=== PATIENT | male | born 1960 | race Caucasian/White ===

== ENCOUNTER 2018-09-11 19:49 | Inpatient (IN) | payer BC ==
[~2018-09-11 19:49] MED LIST: ISOVUE-370 76%-LOCM 1 ML ONE
[2018-09-11 20:15] LABS: Hemoglobin 12.6 g/dL (14.0-18.0); Mean Corpuscular HGB CONC 33.4 g/dL (32.0-36.0); Mean Corpuscular Hemoglobin 31.3 pg (27.0-31.0); Mean Corpuscular Volume 93.7 fL (78.0-98.0); Mean Platelet Volume 7.4 fL (7.4-10.4); Platelet Count 164 thou/uL (130-400); RBC Distribution Width 12.4 % (11.5-14.5); Red Blood Cell (RBC) Count 4.03 mill/uL (4.70-6.10); White Blood Cell (WBC) Count 26.4 thou/uL (4.8-10.8)
[2018-09-11 20:29] LABS: Band 21 % (5-11); Lymphocytes 1 % (21-51); MDiff Complete? YES; Monocytes 10 % (0-10); Neutrophil 68 % (42-75); Platelet Morphology Comment Appears Adequate
--- NOTE | 2018-09-11 20:29 | CT ---
CT BRAIN: 09/11/18 HISTORY: Fall. Head trauma. Patient fell into pool. Noncontrast enhanced CT images of the brain is obtained. Images demonstrate fractures involving the r ight and left occipital bones. The right sided occipital bone extends laterally and anteriorly into t he right temporal bone and through the right mastoid air cells extending into the posterior aspect of the right zygomatic arch. This is compatible with a transverse type right temporal bone fracture. So me fluid seen in the right mastoid air cells. Fluid is also seen in the left sphenoid sinus. Nondisplaced sphenoid sinus fracture cannot be exclude d. There is extensive bilateral frontal lobe brain parenchymal contusions with hemorrhage. Some subarac hnoid hemorrhage also seen. There is also subarachnoid air. IMPRESSION: Bilateral occipital bone fractures with fracture extending to the right temporal bone. There is hemor rhage seen in the left sphenoid sinus concerning for a sphenoid sinus fracture. There is also some ai r seen in the subarachnoid space anteriorly adjacent to bilateral frontal lobe brain contusions and h emorrhages. There also appears to be some subarachnoid blood involving the right and left frontal lob es. There also appears to be an area of hyperdensity in the posterior fossa adjacent to the left medi al anterior transverse sinus possibly representing subdural blood in this region. Findings discussed with Dr. Santos from the Emergency Room Department at 8:19 p.m. on 09/11/18. Code CR POS: [facility]
--- NOTE | 2018-09-11 20:37 | CT ---
CT FACIAL BONES: 09/11/18 HISTORY: Level II trauma. Axial images obtained with coronal and sagittal reconstructions. Images demonstrate oblique right transverse temporal bone fracture extending to the right zygomatic a rch posteriorly. There is a nondisplaced fracture through the right anterior and posterior as well as inferior wall of the right portion of the left opacified sphenoid sinus. This is compatible with a skull base fracture through the right portion of the left sphenoid sinus. The mandible is intact. IMPRESSION: Oblique right temporal bone fracture and left sphenoid sinus skull base fracture. POS: [facility]
--- NOTE | 2018-09-11 20:39 | CT ---
CT CERVICAL SPINE: 09/11/18 HISTORY: Fall. Head trauma. Axial images are obtained with coronal and sagittal reconstructions. CT images demonstrate disc space height loss with anterior and posterior osteophytes at C5-6. No maribell dence of acute cervical spine fracture is seen. IMPRESSION: C5-6 changes of spondylosis. No evidence of acute cervical spine fracture seen. POS: [facility]
--- NOTE | 2018-09-11 20:45 | CT ---
CONTRAST ENHANCED CT IMAGES OF THE CHEST, ABDOMEN AND PELVIS: 09/11/18 HX Level II trauma. Fell into swimming pool with head trauma. Coronal and sagittal reconstructed images also obtained of the thoracic and lumbar spine. CT chest, abdomen and pelvis demonstrate no evidence of acute intrathoracic abdominal or pelvic patho logy. Incidentally noted hepatic cyst seen. Gallstones are noted. No definite evidence of osseous les ions seen in the chest, abdomen and pelvis. No acute abnormalities noted. IMPRESSION: 1. Cholelithiasis. 2. Hepatic cyst. POS: [facility]
[2018-09-11 21:09] LABS: CKMB 8.4 ng/mL (0-6.6)
[2018-09-11] MEDS ORDERED: Morphine 4 MG/ML VIAL ONE (21:12)
[2018-09-11] MEDS ORDERED: Adacel (T-DAP) 0.5 ML SYRINGE ONE (21:13)
[2018-09-11] MEDS ORDERED: Ondansetron PF 4 MG/2 ML Vial ONE (21:13)
[2018-09-11 21:39] LABS: ALT (SGPT) 45 U/L (8-55); AST (SGOT) 56 U/L (5-34); Albumin 3.9 g/dL (3.5-5.0); Alkaline Phosphatase 61 U/L (40-150); Anion Gap 14 mmol/L (10-20); BUN (Urea Nitrogen) 19 mg/dL (8.4-25.7); Bilirubin, Total 0.8 mg/dL (0.2-1.2); CK (CPK) 340 U/L (30-200); Calc. Creatinine Clearance 0 mL/min (70-130); Calcium 8.7 mg/dL (7.8-10.44); Carbon Dioxide 25 mmol/L (22-29); Chloride 106 mmol/L (98-107); Estimated GFR-MDRD 81; Globulin 1.9 g/dL (2.4-3.5); Glucose 203 mg/dL (70-105); Lipase 18 U/L (8-78); Potassium 3.6 mmol/L (3.5-5.1); Protein, Total 5.8 g/dL (6.0-8.3); Sodium 141 mmol/L (136-145)
[2018-09-11 22:08] LABS: INR-International Normal Ratio 1.3; PTT 27.9 SEC (22.9-36.1); Prothrombin Time 16.7 SEC (12.0-14.7)
--- NOTE | 2018-09-11 22:11 | HP ---
REQUESTING PHYSICIAN: Dr. Santos. ATTENDING SURGEON: Dr. Plaza. CONSULTATIONS: Neurosurgery, Dr. Aranda. HISTORY OF PRESENT ILLNESS: The patient is a 57-year-old man who was brought to the emergency department by ground EMS after he reportedly had a history of falling into an empty pool that he was pressure washing. The patient had a positive loss of consciousness for an unknown amount of time. He was finally able to get to help, brought to the emergency department and found to have multiple skull fractures and intracranial hemorrhages and frontal contusions, at which time we were asked to admit the patient and obtain Neurosurgical consultation. ALLERGIES: NONE. CURRENT MEDICATIONS: None. PAST MEDICAL HISTORY: None. PAST SURGICAL HISTORY: Bilateral knee surgery and back surgery of his L-S spine. SOCIAL HISTORY: The patient drinks beer occasionally. Denies drug or tobacco use. 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 REVIEW OF SYSTEMS: Ten-point review of systems is negative as otherwise stated. PHYSICAL EXAMINATION: VITAL SIGNS: Blood pressure 122/81, heart rate 90, respirations 16, oxygen saturation 94% on room air, and temperature is 97.9. GENERAL: The patient is resting comfortably in bed. He is alert and oriented x3. He is amnestic to the events. His [place] Coma Scale is 14, -1 for eye opening, but the patient does open his eyes to verbal stimuli. HEENT: The patient is covered in dried blood from what appears to be two small scalp lacerations that the emergency room physician is going to clean out and close with jerome. Eyes, extraocular motion intact. PERRLA bilaterally. Ears are atraumatic without discharge. Nose has dried blood in both nares. There is no septal hematoma. Oropharynx is clear. NECK: Immobilized in a cervical collar. The patient has tenderness to palpation in the high C-spine consistent with his occipital fractures and has slight paraspinous tenderness to palpation. Trachea is midline. No JVD. The patient's pre-hospital collar will be exchanged for an [place] collar. LUNGS: Clear to auscultation with good inspiratory and expiratory effort. HEART: Regular rate and rhythm. ABDOMEN: Soft, flat, nontender with active bowel sounds. PELVIS: Stable. EXTREMITIES: Neurovascularly intact x4. Strength is 5/5. The patient has multiple upper extremity abrasions and is covered in blood that appears to have still been from his scalp injuries. There are no open wounds, minus the abrasions noted. BACK: Atraumatic with tenderness to palpation in his lower spine area. LABORATORY FINDINGS: White blood cell count 26.4, hemoglobin 12.6, hematocrit 37.7, and platelets 164. Chemistries are pending. RADIOGRAPHIC FINDINGS: CT of the brain without contrast shows bilateral occipital bone fractures extending to the right temporal bone. There is hemorrhage seen in the left sphenoid sinus concerning for a sphenoid sinus fracture. There is also some air seen in the subarachnoid space anteriorly adjacent to the bifrontal lobe brain contusions and hemorrhages. There also appears to be some subarachnoid blood involving the right and left frontal lobes. There also appears to be an area of hyperdensity in the posterior fossa adjacent to the left medial anterior transverse sinus, possibly representing subdural blood in this region. CT of the facial bones without contrast shows an oblique right temporal bone fracture and left sphenoid sinus base skull fracture. CT of the C-spine without contrast shows no evidence of acute cervical spine fracture. CT of the chest, abdomen, and pelvis with IV contrast shows no evidence of acute intrathoracic, abdominal, or pelvic pathology. ASSESSMENT: 1. Status post fall from approximately 4 to 5 feet. 2. Multiple small intracranial hemorrhages. 3. Multiple skull fractures. 4. Scalp laceration. PLAN: Plan will be to admit the patient to the critical care unit for serial exams. He will have a repeat head CT in the morning sooner as determined if he has a decline of 2 points on his [place] Coma Scale. Nonnarcotic pain medication, IV fluid hydration, pulmonary toilet, gastritis and mechanical VTE prophylaxis. The evaluation, examination, laboratory, and radiographic findings will be discussed with Dr. Plaza after this dictation. The patient was examined by Dr. Manoj Montalvo's nurse surgical PA in the emergency department also. Job ID: [id number]
--- NOTE | 2018-09-11 23:08 | CON ---
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 It is unknown how long he was down, but it seems that it was at least 3-4 hours according to , who found him after he had gotten himself out of the pool and was laying on the ground. Neurosurgery was consulted for CT scan revealing multi-site of skull and facial fractures including bilateral occipital bone fractures, right-sided religion bone fracture, bilateral sphenoid fractures. The right religion fracture extends into the zygoma. There is also question of possible orbital fractures. He also has posterior fossa intracerebral hemorrhage that likely appears to be midline subdural with minimal mass effect. He also has a large left frontal contusion and a small right frontal subdural hematoma anteriorly. He has a cervical spine CT that reveals only mild degenerative change, but no acute injuries that I can tell. Radiology confirms this. 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 Upon my entry in the room, the patient is lying in bed, in obvious discomfort. He has his eyes closed, but responds appropriately. He does perseverate some frequently asking the same questions. He does not have any recollection and is amnestic to the event before and after his fall. He does know where he is. He does know the month. He does know his name, date of . He is able to move all 4 extremities on command. Pupils are equal, round, reactive to light. Extraocular movements are intact. He complains of headache and severe lower back pain, but otherwise he appears rather well considering the substantial injuries sustained to his calvarium. I would grade his GCS 14 secondary to slight confusion and perseveration. PAST MEDICAL HISTORY: He has no major medical problems. He does take occasional Motrin. He did take some this morning. PLAN: From NSG perspective, this represents nonoperative intracerebral hemorrhage and multiple skull fractures. We will need a repeat CT scan around 4:30 am in the morning to evaluate evolution and change of his hematomas. I will need to hold all blood thinning medications, head of bed at 30 degrees. Neuro checks q.1 hour for now until recheck on scan. He is in a trauma cervical collar at the moment. We can switch him to an Concepcion for comfort reasons, unable to definitively clear his C spine given distracting injury, though radiographically negative on CT. Job ID: [id number] MTDD
[2018-09-11 23:53] LABS: Troponin I 0.037 ng/mL (< 0.028)
[2018-09-11 23:58] VITALS: BMI 27.7
[2018-09-12] MEDS ORDERED: Ondansetron PF 4 MG/2 ML Vial IVP PRN (00:49)
[2018-09-12] MEDS ORDERED: Ondansetron ODT 4 MG TAB PO PRN (00:49)
[2018-09-12] MEDS ORDERED: Cyclobenzaprine 10 MG TAB PO PRN (00:49)
[2018-09-12] MEDS ORDERED: hydrALAZINE 20 MG/ML VIAL SLOW IVP PRN (00:49)
[2018-09-12] MEDS ORDERED: Dextrose 50% Abboject 50 ML SYRINGE SLOW IVP PRN (00:49)
[2018-09-12] MEDS ORDERED: Promethazine HCl 25 MG/ML VIAL IM PRN ×2 (00:49)
[2018-09-12] MEDS ORDERED: traMADol HCl 50 MG TAB PO PRN (00:49)
[2018-09-12] MEDS ORDERED: Dextrose 5% in Water 1,000 ML IV PRN (00:49)
[2018-09-12] MEDS: Scopolamine 1.5 mg/72 hour Patch TD SCH (01:56)
[2018-09-12] MEDS: Acetaminophen 500 MG TAB PO SCH ×4 (01:56→21:00)
[2018-09-12] MEDS: Sodium Chloride 0.9% 1,000 ML IV SCH ×3 (01:56→18:30)
[2018-09-12 02:34] LABS: #Lymphocytes 0.4 thou/uL (1.20-3.40); #Monocytes 0.9 thou/uL (0.11-0.59); %Eosinophils 0.2 % (0.0-10.0); %Lymphocytes 2.5 % (21.0-51.0); %Monocytes 6.3 % (0.0-10.0); Hemoglobin 11.5 g/dL (14.0-18.0); Mean Corpuscular HGB CONC 35.1 g/dL (32.0-36.0); Mean Corpuscular Hemoglobin 32.7 pg (27.0-31.0); Mean Corpuscular Volume 93.2 fL (78.0-98.0); Mean Platelet Volume 8.1 fL (7.4-10.4); Platelet Count 123 thou/uL (130-400); RBC Distribution Width 12.4 % (11.5-14.5); Red Blood Cell (RBC) Count 3.52 mill/uL (4.70-6.10); White Blood Cell (WBC) Count 14.3 thou/uL (4.8-10.8)
[2018-09-12 02:53] LABS: Anion Gap 16 mmol/L (10-20); BUN (Urea Nitrogen) 16 mg/dL (8.4-25.7); Calc. Creatinine Clearance 145 mL/min (70-130); Calcium 8.7 mg/dL (7.8-10.44); Carbon Dioxide 19 mmol/L (22-29); Chloride 109 mmol/L (98-107); Estimated GFR-MDRD Greater than 90; Glucose 200 mg/dL (70-105); Potassium 3.8 mmol/L (3.5-5.1); Sodium 140 mmol/L (136-145)
[2018-09-12 02:54] LABS: Troponin I 0.037 ng/mL (< 0.028)
[2018-09-12] MEDS: traMADol HCl 50 MG TAB PO PRN ×3 (03:06→14:51)
--- NOTE | 2018-09-12 07:40 | CT ---
CT HEAD NONCONTRAST: INDICATIONS: Intracranial hemorrhage. COMPARISON: 09/11/2018 FINDINGS: There is persistence of multifocal intracranial hemorrhage, including bilateral frontal lobe contusio ns, left greater than right, posteromedial left cerebellar hematoma, and hematoma overlying the anter ior temporal poles bilaterally, as well as a right anterior temporal lobe contusion. [id number] shrestha-left posterior subdural hematomas overly the cerebellum. There is also extraaxial hemorrhage ove rlying the cerebral convexities, right greater than left, indicating a component of subdural and suba rachnoid hemorrhage. Multifocal pneumocephalus is again seen. Calvarial fractures are redemonstrate d. The ventricular system is stable. IMPRESSION: Multifocal intraparenchymal and extraaxial hemorrhage persist, bilaterally with associated posttrauma tic pneumocephalus. No new midline shift or ventriculomegaly. POS: [facility]
[2018-09-12] MEDS: Famotidine 20 MG TAB PO SCH ×2 (09:05→20:59)
--- NOTE | 2018-09-12 11:32 | PRG ---
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 He is also somewhat lethargic, which is likely a combination of significant concussion and closed, and lack of sleep secondary to both pain and arousals from neuro checks overnight. He at this point is at least a week and half that we can clear his cervical spine, which I have done. He has no significant tenderness in the midline. He does have some muscular tenderness, but I do not believe that this is unexpected given the type of fall he sustained. We will discontinue his [place] collar unless he needs it for comfort. We will keep him informed for this purpose. Neuro checks can be relaxed either T4 or T6 depending on primary team's preference. Repeat CT scan this morning shows stable hemorrhage in all locations without significant midline shift or mass effect. All this could very well resolve on its own. I do not see any need to repeat CT scanning at this point unless there is decline in neurologic status. He can be transferred from the ICU at any time to either the surgical floor or stroke unit depending on primary team's preference. Neurosurgery will continue to follow, though no intervention is planned. Job ID: [id number]
[2018-09-13] MEDS: Acetaminophen 500 MG TAB PO SCH ×4 (02:39→20:57)
[2018-09-13] MEDS: Sodium Chloride 0.9% 1,000 ML IV SCH (06:59)
--- NOTE | 2018-09-13 07:44 | PRG ---
DATE OF SERVICE: 09/13/2018 Mr. Bourgeois this morning is a little more interactive, still somewhat lethargic, but does awakens and answer me little more than he had yesterday morning. and daughter are still concerned about persistent bleeding from the right external auditory meatus. A cotton ball was placed and he actually has no clotted blood within the meatus and no active drainage that I could see. I am not concerned about this is the moment, if this is persistent for another 24-48 hours or we may need to do a more focused CT scan and involve ENT. We will discuss with Dr. Aranda today to confirm that plan. In terms of his overall progression, we will slowly start to incorporate physical therapy and establish a baseline tolerance of activity and try to progress him from there. I would like to see him out of the bed sooner than later, but do not want to . A Avalos catheter apparently was placed for urinary retention. I do not have an explanation for that. We will defer to primary team for workup. Neurosurgery will continue to follow. Job ID: [id number]
[2018-09-13] MEDS: Famotidine 20 MG TAB PO SCH ×2 (08:39→20:57)
--- NOTE | 2018-09-13 10:52 | PRG ---
DATE OF SERVICE: 09/13/2018 Mr. Bourgeois is recovering on the floor status post fall with a large predominantly left greater than right frontal contusion. He also has traumatic subarachnoid hemorrhage present. He is resting comfortably in his bed today and is alert, oriented, interactive. He does report some headache, but it has vastly improved as compared to the preceding couple of days. He is to mobilize yet in the room, more in the hallway. The plan will be to mobilize him with physical therapy. I do not foresee a need for neurosurgical intervention. From our perspective, he can be discharged home once he is safe to do so. We will arrange outpatient followup in approximately 2 weeks. I did review with him and family present symptoms of postconcussive syndrome. We will review those yet again and further evaluate for postconcussive symptoms at his outpatient visit. Job ID: [id number]
[2018-09-13] MEDS: Clindamycin 150 MG CAP PO SCH ×2 (15:18→20:58)
[2018-09-13] MEDS: Senokot S 8.6-50 MG TAB PO SCH (20:57)
--- NOTE | 2018-09-13 22:43 | PRG ---
DATE OF SERVICE: 09/13/2018 SUBJECTIVE: This is a 57-year-old gentleman, who was brought to the emergency room, status post falling into an empty pool that he was pressure washing. The patient is hospital day #2. The patient was found to have multiple skull fractures and intracranial hemorrhages with frontal contusions. The patient did have some urinary retention yesterday, and a Avalos was placed. The patient reports headache, but not as bad as yesterday. The patient awakens to voice and is alert and oriented. The patient with minimal appetite but denies any nausea or vomiting. The patient falls back asleep after being interactive. The patient does have some bloody drainage from the right ear averaging about 2 mL every 2 hours. The patient was seen by Neurosurgery today and does not anticipate any surgical intervention. OBJECTIVE: VITAL SIGNS: Temperature 98.2, pulse 64, respirations 20, SpO2 of 95% on room air, and blood pressure 126/74. GENERAL: The patient is sleeping in hospital bed with light off. The patient arouses and opens his eyes to voice. In no distress. HEENT: Mild bloody drainage from the right ear. LUNGS: Clear to auscultation. Good inspiratory and expiratory effort. NECK: Immobilized in soft cervical collar. Trachea is midline. HEART: Regular rate and rhythm. ABDOMEN: Soft, flat, nontender, nondistended. EXTREMITIES: Neurovascularly intact x4. Strength is 5/5. Multiple abrasions to upper extremities. LABORATORY DATA: There are no labs to evaluate today. DIAGNOSTIC DATA: There are no diagnostics to review. IMPRESSION: 1. Status post fall from approximately 4 to 5 feet. 2. Multiple small intracranial hemorrhages. 3. Multiple skull fractures. 4. Scalp laceration closed with jerome. 5. Postconcussive syndrome. PLAN: We will place a rehab screen. We will continue to have Physical Therapy work with the patient. We will also have Speech work with the patient for cognition. We will continue pain regimen. The patient is encouraged to increase activity, but also get enough rest during the day. We will discontinue the patient's Avalos and watch for any continued urinary retention. The patient was seen and evaluated this morning with Dr. Plaza. Job ID: [id number] MTDD
[2018-09-14] MEDS: Clindamycin 150 MG CAP PO SCH ×3 (05:42→20:52)
[2018-09-14] MEDS: Acetaminophen 500 MG TAB PO SCH ×4 (05:42→20:52)
[2018-09-14] MEDS: Polyethylene Glycol 3350 17 GM Packet PO SCH (09:29)
[2018-09-14] MEDS: Senokot S 8.6-50 MG TAB PO SCH ×2 (09:29→20:52)
[2018-09-14] MEDS: Famotidine 20 MG TAB PO SCH ×2 (09:30→20:53)
[2018-09-14] MEDS ORDERED: Tamsulosin HCl 0.4 MG CAP PO SCH (10:15)
[2018-09-14] MEDS ORDERED: Bisacodyl 10 MG SUPP PR PRN (13:25)
--- NOTE | 2018-09-14 14:23 | PRG ---
DATE OF SERVICE: 09/14/2018 SUBJECTIVE: This 57-year-old gentleman is hospital day 3, status post fall into an empty pool in which he sustained multiple skull fractures and intracranial hemorrhage with frontal contusions. The patient reports pain well controlled today, seen in the room, standing from a seated position and transferring in bed successfully with physical therapy. Reports appetite as being improved, urination still minimal at this time. OBJECTIVE: VITAL SIGNS: Blood pressure 112/64, pulse is 70, respirations 16, oxygen saturation 92% on room air. Afebrile. GENERAL: The patient's abrasions and cuts on head are not erythematous, edematous, and do not appear to be actively bleeding. Cranial nerves grossly intact with no focal deficit noted. CHEST: Even inspiratory and expiratory effort. No respiratory distress. ABDOMEN: Flat, nondistended. EXTREMITIES: Neurovascularly intact x4. Seen ambulating successfully. Abrasions do not appear to be infected. LAB/IMAGING: Nothing additional to be reviewed today. ASSESSMENT: 1. Status post fall with subsequent traumatic injuries. 2. Small, stable intracranial hemorrhage. 3. Multiple skull fractures. 4. Scalp lacerations. 5. Postconcussive syndrome. PLAN: Continue to evaluate for inpatient rehab placement and continue supportive care with physical therapy and occupational therapy and Flomax today for urinary retention and Dulcolax suppository for constipation. The patient has not had a bowel movement since being admitted. Continue to control pain and monitor for urine output. We will wait to discontinue Avalos until tomorrow. This patient was seen on morning rounds today and will be discussed with Dr. Kamara upon finishing this dictation. Job ID: [id number]
[2018-09-15] MEDS: Acetaminophen 500 MG TAB PO SCH ×4 (02:52→20:20)
[2018-09-15] MEDS: Scopolamine 1.5 mg/72 hour Patch TD SCH (02:52)
[2018-09-15] MEDS: Clindamycin 150 MG CAP PO SCH ×3 (07:02→20:21)
[2018-09-15] MEDS: Senokot S 8.6-50 MG TAB PO SCH ×2 (09:38→20:20)
[2018-09-15] MEDS: Polyethylene Glycol 3350 17 GM Packet PO SCH (09:38)
[2018-09-15] MEDS: Famotidine 20 MG TAB PO SCH ×2 (09:39→20:21)
[2018-09-15] MEDS: Tamsulosin HCl 0.4 MG CAP PO SCH (09:39)
--- NOTE | 2018-09-15 11:52 | PRG ---
DATE OF SERVICE: 09/15/2018 SUBJECTIVE: Mr. Bourgeois is hospital day #4, status post fall into an empty pool. He sustained multiple skull fractures and intracranial hemorrhage with frontal contusions. The patient is very brief when questioned today, does not desire shades to be opened, reports no headache. Family reports the patient had an eventful night last night including aggressive type behavior, nonphysical in nature, but calling out for things that are not there or reporting that it is daytime outside when it is not, overall really disoriented, and unaware of what was going on. Family reports this is not normal for patient. Increased anger is abnormal as well. They desire to go to inpatient rehab in the [place]. OBJECTIVE: VITAL SIGNS: Stable. Blood pressure mildly elevated at 143/73, pulse 77, respirations 20, oxygen saturation 97%. Afebrile. Port-A-Cath discontinued. Good output measured urinal. GENERAL: Lacerations and abrasions on the patient's head are nonerythematous, nonedematous, and hemostatic. CHEST: Even inspiratory and expiratory effort. No respiratory distress. ABDOMEN: Flat, nondistended. EXTREMITIES: Neurovascularly intact. NEUROLOGIC: Cranial nerves grossly intact. No focal deficit noted. The patient seems irritable. LAB/IMAGING: No studies to be reviewed today. ASSESSMENT: 1. Status post fall, subsequent traumatic injuries. 2. Small stable intracranial hemorrhage. 3. Multiple skull fractures. 4. Scalp lacerations. 5. Postconcussive syndrome with frontal type injury. PLAN: The patient is stable for discharge to inpatient rehab when available. New choice letter sent awaiting insurance approval. The patient is ambulating, urinating, and eating successfully. Mental status changes associated with frontal nature of head injury. Continue to encourage reorientation and to proceed with supportive care. Continue physical therapy and occupational therapy. This patient was seen and evaluated with Dr. Klaus Plaza in the morning rounds. Job ID: [id number] [facility]
[2018-09-15] MEDS: traMADol HCl 50 MG TAB PO PRN (22:02)
[2018-09-16] MEDS: Acetaminophen 500 MG TAB PO SCH ×4 (03:53→21:06)
[2018-09-16] MEDS: Clindamycin 150 MG CAP PO SCH ×3 (06:09→21:11)
[2018-09-16] MEDS: Senokot S 8.6-50 MG TAB PO SCH ×2 (10:56→21:07)
[2018-09-16] MEDS: Famotidine 20 MG TAB PO SCH ×2 (10:56→21:07)
[2018-09-16] MEDS: Tamsulosin HCl 0.4 MG CAP PO SCH (10:56)
[2018-09-16] MEDS: Polyethylene Glycol 3350 17 GM Packet PO SCH (10:58)
[2018-09-16] MEDS: traMADol HCl 50 MG TAB PO PRN (12:38)
[2018-09-16] MEDS: Gabapentin 100 MG CAP PO SCH ×2 (14:29→21:06)
--- NOTE | 2018-09-16 14:44 | PRG ---
DATE OF SERVICE: 09/16/2018 SUBJECTIVE: Mr. Bourgeois is post injury day #5, status post from which he fell into an empty pool, had multiple skull and basilar fractures, intracranial hemorrhage with frontal contusions. Family reports that the patient has had improved mentation and aggression today, is agreeable to go to TBI rehab, is tolerating p.o. well, and ambulating well with some unsteadiness with physical therapy. OBJECTIVE: VITAL SIGNS: Blood pressure 128/79, pulse 63, respirations are 18, temperature 98.6, and saturating well on room air. GENERAL: The patient is in no acute distress. Exhibits signs of photophobia. HEENT: Multiple lacerations and contusions visualized, unchanged from previous days. Clot present within the ear evacuated. No foreign body present. CHEST: Flat. No bony abnormality noted. Even inspiratory and expiratory effort. ABDOMEN: Flat, nontender to palpation. EXTREMITIES: Moves all four. NEUROLOGIC: Cranial nerves are grossly intact. The patient is neurovascularly intact x4. No focal deficit noted. LABORATORY/IMAGING DATA: Nothing new to be reviewed today. ASSESSMENT: 1. Status post fall, subsequent traumatic injuries. 2. Small stable intracranial hemorrhage. 3. Multiple skull fractures. 4. Scalp lacerations. 5. Postconcussive syndrome with frontal type injury. PLAN: The patient is stable for discharge to inpatient rehab when available and continue to encourage ambulation with physical therapy and strengthening including balance exercises. Continue to provide for family support for understanding traumatic brain injuries including reorientation of the patient frequently. This patient was seen and evaluated on morning rounds with Dr. Klaus Plaza. Job ID: [id number]
[2018-09-17] MEDS: Acetaminophen 500 MG TAB PO SCH ×4 (03:01→21:04)
[2018-09-17] MEDS: traMADol HCl 50 MG TAB PO PRN (04:28)
[2018-09-17 04:50] LABS: #Eosinphils 0.3 thou/uL (0.0-0.7); #Lymphocytes 0.7 thou/uL (1.20-3.40); #Monocytes 1.1 thou/uL (0.11-0.59); #Neutrophils 7.4 thou/uL (1.40-6.50); %Basophils 0.1 % (0.0-1.0); %Eosinophils 2.8 % (0.0-10.0); %Lymphocytes 7.3 % (21.0-51.0); %Monocytes 11.4 % (0.0-10.0); %Neutrophils 78.5 % (42.0-75.0); Hemoglobin 9.4 g/dL (14.0-18.0); Mean Corpuscular HGB CONC 34.1 g/dL (32.0-36.0); Mean Corpuscular Hemoglobin 31.7 pg (27.0-31.0); Mean Corpuscular Volume 92.9 fL (78.0-98.0); Mean Platelet Volume 8.6 fL (7.4-10.4); Platelet Count 67 thou/uL (130-400); Red Blood Cell (RBC) Count 2.95 mill/uL (4.70-6.10); White Blood Cell (WBC) Count 9.5 thou/uL (4.8-10.8)
[2018-09-17 04:57] LABS: Anion Gap 10 mmol/L (10-20); BUN (Urea Nitrogen) 16 mg/dL (8.4-25.7); Calc. Creatinine Clearance 160 mL/min (70-130); Calcium 8.6 mg/dL (7.8-10.44); Carbon Dioxide 28 mmol/L (22-29); Chloride 101 mmol/L (98-107); Estimated GFR-MDRD Greater than 90; Glucose 121 mg/dL (70-105); Magnesium 1.7 mg/dL (1.6-2.6); Phosphorus 3.5 mg/dL (2.3-4.7); Potassium 3.4 mmol/L (3.5-5.1); Sodium 136 mmol/L (136-145)
[2018-09-17] MEDS: Clindamycin 150 MG CAP PO SCH ×3 (05:47→21:04)
[2018-09-17] MEDS ORDERED: Potassium Chloride 20 MEQ TAB PO SCH (07:30)
[2018-09-17] MEDS: Tamsulosin HCl 0.4 MG CAP PO SCH (08:00)
[2018-09-17] MEDS: Senokot S 8.6-50 MG TAB PO SCH ×2 (08:00→21:04)
[2018-09-17] MEDS: Famotidine 20 MG TAB PO SCH (08:00)
[2018-09-17] MEDS: Gabapentin 100 MG CAP PO SCH ×3 (08:00→21:03)
[2018-09-17] MEDS: Polyethylene Glycol 3350 17 GM Packet PO SCH (08:18)
--- NOTE | 2018-09-17 12:34 | CON ---
DATE OF CONSULTATION: 09/16/2018 BRIEF HISTORY: This is a gentleman who has complete loss of consciousness, is unaware of complete events. Basically, he had significant head trauma while he was cleaning out the inside of a pool, thought he had fallen from a height into the pool and landed on his head. He had multiple skull fractures diagnosed and followed by CT scan. They were aware of a temporal bone fracture on his right side; however, the external auditory canal had appeared abnormal and they consulted us for evaluation. Brief history chart reports no significant hearing loss other than some mild age-related changes prior to this. Now, he reports complete fullness and autophony in that right ear. He reports mild ringing in that ear. He denies any weakness in his face. The family is at the bedside and they feel that his face has been symmetrical and intact throughout this ordeal. He has not had significant amounts of otorrhea, although the otorrhea that he has had, they did a Beta-2 transferrin, which was negative. PAST MEDICAL HISTORY: Mild high blood pressure. PAST SURGICAL HISTORY: Nonsignificant. PHYSICAL EXAMINATION: HEENT: Left ear, TMs intact. Middle ear is well aerated. Right ear, there is an external auditory canal laceration that has swollen skin and some granulation present. This is obliterating the majority of the canal. There is no obvious CSF leak. There is some mild tenderness around the temporal bone; however, I feel no step-offs or crepitus on the mastoid tip or in the periauricular area. Facial nerve is intact bilaterally. Nasal cavity is slightly congested. Oral cavity, oropharynx, mucosa is intact. NECK: No lymphadenopathy. No masses. ASSESSMENT AND PLAN: Right transverse-type temporal bone fracture. His facial nerve is currently intact. It appears the fracture line has spared the otic capsule; however, we will need audiogram on outpatient to confirm this. For the time being, I recommend we leave the external auditory canal laceration and allow to heal on its own. We need to keep a follow up on this as an outpatient. Recommend he follow up with us in 1 to 2 weeks depending his discharge plans. Job ID: [id number] MTDD
[2018-09-18] MEDS: Acetaminophen 500 MG TAB PO SCH ×4 (02:21→20:31)
[2018-09-18] MEDS: traMADol HCl 50 MG TAB PO PRN ×2 (02:22→20:32)
[2018-09-18] MEDS: Scopolamine 1.5 mg/72 hour Patch TD SCH (02:22)
[2018-09-18] MEDS: Clindamycin 150 MG CAP PO SCH ×3 (06:06→22:06)
--- NOTE | 2018-09-18 07:51 | PRG ---
DATE OF SERVICE: 09/17/2018 SUBJECTIVE: Mr. Bourgeois is post-injury day #6, status post fall into an empty pool with multiple skull, basilar fractures, intracranial hemorrhage, and frontal contusions. The family reports that the patient had a good night last night with improved mentation and decreased aggression today. They have selected an inpatient rehab and are awaiting insurance authorization. The patient is tolerating p.o. well, doing well with occupational and physical therapy. Ambulating successfully with some unsteadiness. OBJECTIVE: VITAL SIGNS: Stable. Saturating well on room air. Afebrile. GENERAL: This patient is in no acute distress. HEENT: Multiple lacerations and contusions were visualized and unchanged from previous days. CHEST: Flat. No bony abnormality noted. Even inspiratory and expiratory effort. ABDOMEN: Flat, nontender to palpation. EXTREMITIES: Moves all four. NEUROLOGIC: Cranial nerves grossly intact. The patient is neurovascularly intact x4. No focal deficits noted. LABORATORY/IMAGING DATA: Nothing new to be reviewed today. ASSESSMENT: 1. Status post fall, subsequent traumatic injuries. 2. Small stable intracranial hemorrhage. 3. Multiple skull fractures. 4. Scalp lacerations. 5. Postconcussive syndrome with left frontal type injury. PLAN: The patient remained stable for discharge to inpatient rehab when available. Follow up with Case Management this afternoon. Reported that insurance approval was still pending. Continue supportive therapy with PT and OT. Job ID: [id number]
[2018-09-18] MEDS: Polyethylene Glycol 3350 17 GM Packet PO SCH (08:14)
[2018-09-18] MEDS: Gabapentin 100 MG CAP PO SCH ×3 (08:14→20:30)
[2018-09-18] MEDS: Senokot S 8.6-50 MG TAB PO SCH ×2 (08:14→20:31)
[2018-09-18] MEDS: Tamsulosin HCl 0.4 MG CAP PO SCH (08:14)
--- NOTE | 2018-09-18 17:47 | RAD ---
TWO VIEWS LEFT HIP: 09/18/18 HISTORY: Continued left hip pain for one week after a fall. FINDINGS: There is no evidence of a fracture, dislocation, or other osseous abnormality involving the left hip . No other osseous abnormality. IMPRESSION: No fracture or dislocation involving the left hip. POS: C
--- NOTE | 2018-09-18 22:45 | PRG ---
DATE OF SERVICE: 09/18/2018 SUBJECTIVE: The patient remains on the surgical floor. He is hospital day #7, status post fall into an empty pool, which he sustained multiple skull fractures, intracranial hemorrhage, and frontal contusions. The patient has been awaiting placement. Late this afternoon, we received word that he had been denied due to "insufficient clinical data." This was relayed to Case Management and they subsequently notified here, but as of this dictation time, we still have not heard back in regard to attempting to get a peer to appear or hopefully approval from them. Otherwise, the patient is progressing. He has been able to work with Physical therapy more today. He complained of some left hip pain, that was slowing him down. Re-x-rays still are unremarkable for any fractures. It is likely a soft tissue injury. The patient is tolerating a diet. Pain is controlled. He has improved mentation. OBJECTIVE: VITAL SIGNS: Temperature is 98.6, heart rate 82, blood pressure 139/83, respirations 16, oxygen saturation 94% on room air. GENERAL: The patient is resting comfortably in bed. He is awake, appropriate, alert, and oriented x3. [place] Coma Scale is 15. HEENT: Unchanged. All wounds appear clean, dry, and intact. CHEST: The patient has even inspiratory and expiratory effort. No distress. Appears to be moving air freely. ABDOMEN: Flat. EXTREMITIES: Neurovascularly intact x4. The patient is moving all 4 extremities effortlessly. LABORATORY DATA: There are no labs to review this morning. RADIOGRAPHS: Views of the left hip showed no fracture or dislocation. ASSESSMENT: 1. Status post fall with multiple traumatic injuries. 2. Intracranial hemorrhages, stable. 3. Multiple skull fractures, stable. PLAN: Plan will be to continue supportive care, physical and occupational therapy, and speech therapy for cognition. Of note, the patient was evaluated by ENT, Dr. Bolden yesterday for some blood noted in his canal. Scans did show a fracture through this area, but spared the otic capsule and the patient will require a followup with Dr. Bolden in 1 to 2 weeks depending on his discharge time. Job ID: [id number]
[2018-09-19] MEDS: Acetaminophen 500 MG TAB PO SCH ×4 (03:12→22:21)
[2018-09-19] MEDS: Clindamycin 150 MG CAP PO SCH ×3 (06:00→21:53)
[2018-09-19] MEDS: Gabapentin 100 MG CAP PO SCH ×3 (07:59→21:55)
[2018-09-19] MEDS: Polyethylene Glycol 3350 17 GM Packet PO SCH (08:00)
[2018-09-19] MEDS: Senokot S 8.6-50 MG TAB PO SCH ×2 (08:00→21:53)
[2018-09-19] MEDS: Tamsulosin HCl 0.4 MG CAP PO SCH (08:00)
[2018-09-19] MEDS: HYDROcodone/Acetaminophen 5/325 mg Tablet PO PRN ×2 (12:46→21:54)
[2018-09-19] MEDS ORDERED: Scopolamine 1.5 mg/72 hour Patch TD SCH (13:00)
--- NOTE | 2018-09-19 19:09 | PRG ---
DATE OF SERVICE: 09/19/2018 SUBJECTIVE: The patient remains on the surgical floor. He is hospital day #8, status post fall into an empty pool, in which he sustained multiple skull fractures and traumatic brain injuries. The patient has been waiting for placement. Unfortunately, he was declined initially and we are working to rectify this in hopes of getting a [id number] for approval. Otherwise, the patient remains working with physical and occupational therapy and speech therapy. Chief complaint today is just headache, but he is tolerating a diet and he has been out of bed ambulating. The patient's bowel function has returned. OBJECTIVE: VITAL SIGNS: Temperature is 98.1, heart rate is 74, blood pressure 154/79, respirations 18, and oxygen saturation is 96% on room air. GENERAL: The patient is resting comfortably in bed. He does appear in better spirits than yesterday. This was discussed with the patient and his family that getting out of his room ambulating will approve his spirits, but he will have his good days and bad days. HEENT: Unchanged. RESPIRATIONS: Appear nonlabored. ABDOMEN: Flat. EXTREMITIES: The patient is moving all 4 extremities freely purposefully. LABORATORY DATA: There are no labs or radiographs reviewed this morning. ASSESSMENT: 1. Status post fall with multiple traumatic injuries. 2. Intracranial hemorrhages, stable. 3. Multiple skull fractures, stable. PLAN: Plan will be to continue all supportive therapies and await final placement decisions. Job ID: [id number]
[2018-09-20] MEDS: Acetaminophen 500 MG TAB PO SCH ×4 (03:43→20:33)
[2018-09-20] MEDS: Clindamycin 150 MG CAP PO SCH ×3 (06:16→20:34)
[2018-09-20] MEDS: HYDROcodone/Acetaminophen 5/325 mg Tablet PO PRN ×2 (06:16→12:58)
[2018-09-20] MEDS: Senokot S 8.6-50 MG TAB PO SCH ×2 (09:40→20:34)
[2018-09-20] MEDS: Polyethylene Glycol 3350 17 GM Packet PO SCH (09:40)
[2018-09-20] MEDS: Tamsulosin HCl 0.4 MG CAP PO SCH (09:41)
[2018-09-20] MEDS: Gabapentin 100 MG CAP PO SCH ×3 (09:41→20:33)
--- NOTE | 2018-09-20 14:47 | PRG ---
DATE OF SERVICE: 09/20/2018 SUBJECTIVE: The patient remains on the surgical floor. He is status post a fall into an empty pool, which he sustained multiple skull fractures and traumatic brain injury. The patient has been awaiting placement to [facility], but there are some administrative issues with paperwork, so we are awaiting hopeful determination tomorrow. Otherwise, yesterday, the patient had a significant headache, that has since resolved, but did prevent him from being able to work with Physical and Occupational Therapy. Overnight, he had no issues. He feels much better this morning and feels that he will be able to work with therapy. The patient is tolerating a diet and his bowel function has returned. PHYSICAL EXAMINATION: VITAL SIGNS: Temperature is 98.1, heart rate 73, blood pressure 119/69, respirations 12, and oxygen saturation 94% on room air. GENERAL: The patient is resting comfortably in bed. He is awake, alert, and oriented. [place] Coma Scale is 15. HEENT: The patient has some dried blood in his right external auditory canal. He has not required a cotton ball in this canal for just over 24 hours now. LUNGS: Clear to auscultation with good inspiratory and expiratory effort. HEART: Regular rate and rhythm. ABDOMEN: Soft, flat, and nontender with active bowel sounds. EXTREMITIES: Neurovascularly intact x4. LABORATORY DATA: There are no labs or radiographs to review this morning. ASSESSMENT AND PLAN: 1. Status post fall with multiple traumatic skull and brain injuries, stable. 2. Headache secondary to above, resolved. Plan will be to continue supportive care and await final placement determination. I did have a discussion with the patient and his spouse today that if we are unable to get him placed to [facility], tomorrow we would also discuss other options to include home with home health. Again, this will be discussed tomorrow when the entire trauma team and case management are with us. Job ID: [id number]
[2018-09-20] MEDS ORDERED: Scopolamine 1.5 mg/72 hour Patch TD SCH (18:00)
[2018-09-21] MEDS: HYDROcodone/Acetaminophen 5/325 mg Tablet PO PRN ×3 (01:57→19:27)
[2018-09-21] MEDS: Acetaminophen 500 MG TAB PO SCH ×3 (03:57→16:26)
[2018-09-21] MEDS: Clindamycin 150 MG CAP PO SCH (05:52)
[2018-09-21] MEDS: Cephalexin 250 MG CAP PO SCH ×3 (08:59→19:27)
[2018-09-21] MEDS: Tamsulosin HCl 0.4 MG CAP PO SCH (09:00)
[2018-09-21] MEDS: Senokot S 8.6-50 MG TAB PO SCH ×2 (09:00→19:27)
[2018-09-21] MEDS: Gabapentin 100 MG CAP PO SCH ×3 (09:00→19:28)
[2018-09-21] MEDS: Polyethylene Glycol 3350 17 GM Packet PO SCH (09:00)
[2018-09-21 16:26] VITALS: BP 122/77; TEMP 98.7
--- NOTE | 2018-09-23 03:16 | DIS ---
DATE OF ADMISSION: 09/11/2018 DATE OF DISCHARGE: 09/21/2018 RESIDENT: Mohinder Wright DO CONSULTANTS: Dr. Juan C Aranda, Neurosurgery. IMAGING: Brain, C-spine, chest, abdomen, pelvis, and facial bones CT significant for bilateral occipital bone fractures extended in right temporal bone, hemorrhage, and left sphenoid sinus with concern for sphenoid sinus fracture, air in subarachnoid space, bifrontal lobe brain contusions and hemorrhage, some subarachnoid blood involving right and left frontal lobes. Hyperdensity in the posterior fossa adjacent to the left middle anterior transverse sinus, possibly representing subdural blood in the region. Oblique right catholic bone fracture, left sphenoid sinus base skull fracture. No evidence of acute cervical spine fracture. Chest, abdomen, and pelvis without evidence for acute pathology. MEDICATIONS: 1. Magnesium oxide [id number] 3 tabs p.o. daily. 2. Tylenol 1 g p.o. q.i.d. 3. Flexeril 10 mg p.o. t.i.d. p.r.n. 4. Gabapentin 200 mg p.o. t.i.d. 5. Zofran 4 mg p.o. q.6 hours p.r.n. 6. Scopolamine 1.5 mg TD every 3 days. 7. Tramadol 100 mg p.o. q.6 hours p.r.n. 8. Tramadol 50 mg p.o. q.6 hours p.r.n. PRIMARY DIAGNOSIS: Multiple traumatic skull and brain injuries. SECONDARY DIAGNOSIS: Headache secondary to trauma. HISTORY OF PRESENT ILLNESS/HOSPITAL COURSE: This 57-year-old male presented to the ER with a history of falling into an empty pool that he was cleaning and believed to have lost consciousness. The patient's found him to have crawled out of the pool. At that time, he was taken to the emergency department for further evaluation and found to have multiple brain and skull injuries. Neurosurgery was consulted. Repeat CT of the brain was stable. The patient exhibited behaviors consistent with frontal lobe injury during his hospital stay. His vital signs, hemoglobin, and other lab values remained stable. The patient improved well with physical and occupational therapy. Due to his mental status changes and line of work as a dentist, it was determined that the best course would be for the patient to go to rehab for traumatic brain injuries. The patient was accepted and deemed stable for transport there. DISCHARGE INSTRUCTIONS: Location: Inpatient rehab in [place]. Diet: Regular. Activity: As tolerated with therapy there. FOLLOWUP: Follow up with inpatient team in rehab center. This patient was seen and evaluated on morning rounds by Dr. Scott Shirley on 09/21. Job ID: [id number]
== END 2018-09-21 19:30 | disposition home or self-care (01) | DRG 84 ==
LOC: ERS 19:49 → CCU 23:34 → SURG B 09-12 10:36
PROVIDERS: ADMIT Surgery; ATTEND Surgery
PROC: 0HQ0XZZ Repair Scalp Skin, External Approach (ICD-10-PCS; principal; 2018-09-11)
DX: S06.6X9A Traumatic subarachnoid hemorrhage with loss of consciousness of unspecified duration, initial encounter (principal); S02.91XA Unspecified fracture of skull, initial encounter for closed fracture; W19.XXXA Unspecified fall, initial encounter; S01.01XA Laceration without foreign body of scalp, initial encounter; F07.81 Postconcussional syndrome; R51 Headache
CPT/HCPCS: 12001; 36415; 70450; 70486; 71260; 72125; 74177; 80048; 80053; 82550; 82553; 83690; 83735; 84100; 84484; 85025; 85610; 85730; 90471; 90715; 93005; 96361; 96365; 96375; G0390; J0690; J2270; J2405; Q9966